=== PATIENT | male | born 1955 | race Asian ===

== ENCOUNTER 2018-01-09 13:19 | Observation (INO) | payer SELFPAY ==
--- NOTE | 2018-01-09 13:48 | PDOC ---
History of Present Illness - General Chief Complaint: Pain, Acute Stated Complaint: ABD PAIN Time Seen by Provider: 01/09/18 13:45 - History of Present Illness Initial Comments: 01/09/18 13:46 62 yo M with h/o IDDM, HTN, L sided nephrolithiasis s/p ESWL (12/31) who p/w suprpapubic pain. Patient reports 2-3 days of intermittent, suprapubic discomfort. No identifiable triggers or alleviators. Percocet for pain relief. States that urine has appeared "bhavik" following ESWL. Denies hematuria. Patient denies N/V, F,C, CP, SOB, urinary complaints, diarrhea, constipation, lightheadedness, weakness, sensory changes. PMHx: as noted above. Denies h/o abdominal surgery. Urologist Dr. Jay. ROS: as noted SHx: Etoh 30 ml per night. 2 cigarettes per day. Denies IVDA. Allergies: NKDA Past History - Past Medical History Allergies/Adverse Reactions: Allergies Allergy/AdvReac Type Severity Reaction Status Date / Time No Known Drug Allergies Allergy Verified 01/09/18 13:33 Home Medications: Ambulatory Orders Aspirin [ASA -] 81 mg PO DAILY 05/02/14 Atorvastatin Ca [Lipitor] 20 mg PO DAILY 05/02/14 Carvedilol 25 mg PO DAILY 05/02/14 Isosorbide Mononitrate 30 mg PO DAILY 05/02/14 Glipizide [Glucotrol -] 10 mg PO BID 05/19/15 Losartan Potassium [Cozaar] 100 mg PO DAILY 05/19/15 Clopidogrel Bisulfate [Plavix -] 75 mg PO DAILY #0 05/22/15 Insulin Glargine,Hum.rec.anlog [Lantus] 25 unit SQ HS 01/09/18 Metformin HCl [Glucophage] 1,000 mg PO BID 01/09/18 Anemia: No Asthma: No Cancer: No Cardiac Disorders: Yes (2004 [place] ANGIOPLASY WITH STENT INSERTION) CVA: No COPD: No CHF: No Dementia: No Diabetes: Yes (NIDDM) GI Disorders: No Disorders: Yes (KIDNEY STONE) HTN: Yes Hypercholesterolemia: Yes Liver Disease: No Seizures: No Thyroid Disease: No - Immunization History Immunization Up to Date: Yes - Suicide/Smoking/Psychosocial Hx Smoking History: Former smoker Have you smoked in the past 12 months: Yes Number of Cigarettes Smoked Daily: 4 If you are a former smoker, when did you quit?: 10/2014 Information on smoking cessation initiated: No 'Breaking Loose' booklet given: 05/02/14 Hx Alcohol Use: No Drug/Substance Use Hx: No Substance Use Type: None Hx Substance Use Treatment: No Review of Systems - Review of Systems Comments:: 01/09/18 13:47 GENERAL/CONSTITUTIONAL: No fever or chills. No weakness. HEAD, EYES, EARS, NOSE AND THROAT: No change in vision. No ear pain or discharge. No sore throat. CARDIOVASCULAR: No chest pain or shortness of breath RESPIRATORY: No cough, wheezing, or hemoptysis. GASTROINTESTINAL: No nausea, vomiting, diarrhea or constipation. GENITOURINARY: + Suprapubic pain. No dysuria, frequency, or change in urination. MUSCULOSKELETAL: No joint or muscle swelling or pain. No neck or back pain. SKIN: No rash NEUROLOGIC: No headache, vertigo, loss of consciousness, or change in strength/ sensation. ENDOCRINE: No increased thirst. No abnormal weight change HEMATOLOGIC/LYMPHATIC: No anemia, easy bleeding, or history of blood clots. ALLERGIC/IMMUNOLOGIC: No hives or skin allergy. *Physical Exam - Vital Signs Last Vital Signs Temp Pulse Resp BP Pulse Ox 97.4 F L 61 18 134/73 100 01/09/18 13:33 01/09/18 13:33 01/09/18 13:33 01/09/18 13:33 01/09/18 13:33 - Physical Exam Comments: 01/09/18 13:47 GENERAL: Awake, alert, and fully oriented, in no acute distress HEAD: No signs of trauma, normocephalic, atraumatic EYES: PERRLA, EOMI, sclera anicteric, conjunctiva clear ENT: Hearing grossly normal, nares patent, oropharynx clear without exudates. Moist mucosa NECK: Normal ROM, supple, no lymphadenopathy, JVD, or masses LUNGS: No distress, speaks full sentences, clear to auscultation bilaterally HEART: Regular rate and rhythm, normal S1 and S2, no murmurs, rubs or gallops, peripheral pulses normal and equal bilaterally. ABDOMEN: Soft, + suprapubic ttp. Nontender, normoactive bowel sounds. No guarding, no rebound. No masses EXTREMITIES : Normal inspection, Normal range of motion, no edema. No clubbing or cyanosis. SKIN: Warm, Dry, normal turgor, no rashes or lesions noted ED Treatment Course - LABORATORY CBC & Chemistry Diagram: 01/09/18 14:51 01/09/18 14:51 Medical Decision Making - Medical Decision Making 01/09/18 14:12 62 yo M with h/o IDDM, HTN, L sided nephrolithiasis s/p ESWL (12/31) who p/w suprpapubic pain. VSS, AF, A&Ox3. + suprpapubic ttp. Probable cystitis. Not on antibiotic treatment. Non toxic appearing, absent CVA ttp, AF. Low suspicion pyelonephritis, obstructive uropathy, AAA, Ao dissection. ED Course: CBC,CMP, UA, Urine Cx. Ibruprofen Renal/Bladder U/S 01/09/18 15:12 UA: 3+ Blood, 72 RBC 01/09/18 15:56 WBC: 8.9 01/09/18 16:12 BUN/Cr: 26/1.8 (0.9) 01/09/18 16:31 Renal U/S: Non obstructing renal stones without evidence of hydronephrosis. 01/09/18 17:02 Called and spoke to Dr. Perez. Awaiting call back, Ana Grigsby to check EMR and report back to ED with Cr baseline. 01/09/18 17:[address] Perez Creatinine 1.2 (12/30/17) *DC/Admit/Observation/Transfer Diagnosis at time of Disposition: Suprapubic cramping - Discharge Dispostion Condition at time of disposition: Stable Decision to Admit order: No - Referrals Referrals: Sherice Lux MD [Primary Care Provider] - - Patient Instructions Printed Discharge Instructions: DI for Abdominal Pain-Adult Additional Instructions: Please return to the emergency department with any new or worsening symptoms or concerns. Please follow up with your primary care physician within 72 hours. - Post Discharge Activity - Attestations Physician Attestion: 01/09/18 14:16 I attest to the information provided in this note.
--- NOTE | 2018-01-09 14:01 | PDOC ---
Attending Attestation - Resident Resident Name: John Paul Wu - ED Attending Attestation I have performed the following: I have examined & evaluated the patient, The case was reviewed & discussed with the resident, I agree w/resident's findings & plan, Exceptions are as noted - HPI HPI: 01/09/18 14:31 62y M hx of dm, htn, hl, kidney stones s/p lithotrypsy on 12/31, pt was well until the past 2-3 days when he developed intermittent/crampy LLQ and suprapubic pain c/w prior kidney stones, no associated dysuria, fever/chills, n/ v, hematuria. Pain c/w prior kidney stones and staets he has been passing stones/sediment since his procedure. No other assoicated cp, sob, palpitations. Pt taking percs for pain with some relief. GENERAL: The patient is awake, alert, and fully oriented, Nontoxic - in no acute distress. HEAD: Normocephalic, atraumatic. EYES: extraocular movements intact, sclera anicteric, conjunctiva clear. ENT: Normal voice, Moist mucous membranes. NECK: Normal range of motion, supple LUNGS: Breath sounds equal, clear to auscultation bilaterally. No wheezes, no rhonchi, no rales. HEART: Regular rate and rhythm, normal S1 and S2 without murmur, rub or gallop. ABDOMEN: Soft, nontender, No guarding, no rebound. No CVA tenderness EXTREMITIES: Normal range of motion, no edema. NEUROLOGICAL: No facial assymetry, Normal speech, PSYCH: Normal mood, normal affect. SKIN: Warm, Dry, normal turgor, suspect possible kidney stone UA to r/o hematuria/infection US to r/o hydro will give nsaids for pain will reassess and dw dr. Sheets - Medical Decision Making 01/09/18 16:52 pts labs reviewed noted for cr of 1.8 - unclear if this is new or old pts pain is improved, asymptmotic currently will discuss with dr. Lux or dr Sheets
[2018-01-09] MEDS ORDERED: IBUPROFEN 600 MG TABLET (FP) PO ONE ×2 (14:05→14:25)
[2018-01-09 14:53] LABS: URINE APPEARANCE CLEAR; URINE BILIRUBIN NEGATIVE (<2.0 mg/dL); URINE COLOR LTYELLOW; URINE GLUCOSE (UA) NEGATIVE (NEGATIVE); URINE KETONE NEGATIVE (NEGATIVE); URINE LEUK ESTERASE TRACE (NEGATIVE); URINE NITRITE NEGATIVE (NEGATIVE); URINE UROBILINOGEN NEGATIVE mg/dL (0.2-1.0)
[2018-01-09 14:55] LABS: URINE PROTEIN 1+ (NEGATIVE)
[2018-01-09 14:56] LABS: URINE MUCUS RARE
[2018-01-09 15:32] LABS: EOS % 6.7 % (0-4.5); HEMATOCRIT 40.8 % (35.4-49); HEMOGLOBIN 13.9 GM/dL (11.7-16.9); MCH 31.7 pg (25.7-33.7); MCHC 34.2 g/dl (32.0-35.9); MEAN CELL VOLUME 92.8 fl (80-96); MEAN PLT VOLUME 9.7 fl (7.5-11.1); MONO % 8.5 % (3.8-10.2); NEUT % 58.8 % (42.8-82.8); PLATELET COUNT 177 K/MM3 (134-434); RBC 4.39 M/mm3 (4.00-5.60); RDW 12.7 % (11.9-15.9); WHITE BLOOD COUNT 8.9 K/mm3 (4.0-10.0)
[2018-01-09 15:53] LABS: ALBUMIN 3.8 g/dl (3.4-5.0); ANION GAP 9 (8-16); BLOOD UREA NITROGEN 26 mg/dL (7-18); CALCIUM 8.9 mg/dL (8.5-10.1); CHLORIDE 104 mmol/L (98-107); CO2 26 mmol/L (21-32); GLUCOSE,RANDOM 55 mg/dL (74-106); POTASSIUM 4.9 mmol/L (3.5-5.1); SGPT/ALT 53 U/L (12-78); SODIUM 139 mmol/L (136-145)
[2018-01-09 15:56] LABS: ALK PHOS 57 U/L (45-117); BILIRUBIN,TOTAL 0.4 mg/dL (0.2-1.0); CREATININE 1.8 mg/dL (0.7-1.3); SGOT/AST 40 U/L (15-37); TOT PROT 6.8 g/dl (6.4-8.2)
[2018-01-09] MEDS ORDERED: SODIUM CHLORIDE 1,000 ML IV STA (16:31)
--- NOTE | 2018-01-09 18:40 | HP ---
CHIEF COMPLAINT: Suprapubic and left flank pain PCP: Dr. Lux HISTORY OF PRESENT ILLNESS: 62 year-old male with a PMH significant for HTN, HLD, IDDM, and nephrolithiasis s/p 14 lithotripsies over a span of more than 10 years, most recently 12/31/17 ( [facility]). Patient felt well until 2-3 days ago when he developed left flank and suprapubic pain. The pain was very similar in character to when he has passed numerous previous renal stones. His urine contained visible sediment/ gravel. He managed the pain initially with percocet but in the past 24 hours the pain became intolerable and his urologist's office recommended he come to the ED. Patient denies fever, sweats, chills. Denies hematuria, dysuria. ER course was notable for: (1) UA: 72 RBCs, 10 WBCs (2) BUN/Cr 26/1.8 (2) Afebrile, no leukocytosis (3) US renal: nonobstructing bilateral renal stones; no evidence of hydronephrosis Recent Travel: No PAST MEDICAL HISTORY: Hypertension Hyperlipidemia IDDM Nephrolithiasis PAST SURGICAL HISTORY: Multiple lithotripsies Coronary stent Social History: Smoking: current smoker Alcohol: daily alcohol Drugs: denies Family History: Allergies No Known Drug Allergies Allergy (Verified 01/09/18 13:33) HOME MEDICATIONS: Home Medications Medication Instructions Recorded Aspirin [ASA -] 81 mg PO DAILY 05/02/14 Atorvastatin Ca [Lipitor] 20 mg PO DAILY 05/02/14 Carvedilol 25 mg PO DAILY 05/02/14 Isosorbide Mononitrate 30 mg PO DAILY 05/02/14 Glipizide [Glucotrol -] 10 mg PO BID 05/19/15 Losartan Potassium [Cozaar] 100 mg PO DAILY 05/19/15 Clopidogrel Bisulfate [Plavix -] 75 mg PO DAILY #0 05/22/15 Insulin Glargine,Hum.rec.anlog 25 unit SQ HS 01/09/18 [Lantus] Metformin HCl [Glucophage] 1,000 mg PO BID 01/09/18 REVIEW OF SYSTEMS CONSTITUTIONAL: Absent: fever, chills, diaphoresis, generalized weakness, malaise, loss of appetite, weight change HEENT: Absent: rhinorrhea, nasal congestion, throat pain, throat swelling, difficulty swallowing, mouth swelling, ear pain, eye pain, visual changes CARDIOVASCULAR: Absent: chest pain, syncope, palpitations, irregular heart rate, lightheadedness , peripheral edema RESPIRATORY: Absent: cough, shortness of breath, dyspnea with exertion, orthopnea, wheezing, stridor, hemoptysis GASTROINTESTINAL: Absent: abdominal pain, abdominal distension, nausea, vomiting, diarrhea, constipation, melena, hematochezia GENITOURINARY: +flank pain, suprapubic pain, urine sediment/gravel Absent: dysuria, frequency, urgency, hesitancy, hematuria, genital pain MUSCULOSKELETAL: Absent: myalgia, arthralgia, joint swelling, back pain, neck pain SKIN: Absent: rash, itching, pallor HEMATOLOGIC/IMMUNOLOGIC: Absent: easy bleeding, easy bruising, lymphadenopathy, frequent infections ENDOCRINE: Absent: unexplained weight gain, unexplained weight loss, heat intolerance, cold intolerance NEUROLOGIC: Absent: headache, focal weakness or paresthesias, dizziness, unsteady gait, seizure, mental status changes, bladder or bowel incontinence PSYCHIATRIC: Absent: anxiety, depression, suicidal or homicidal ideation, hallucinations. PHYSICAL EXAMINATION Vital Signs - 24 hr 01/09/18 01/09/18 13:33 17:26 Temperature 97.4 F L 97.8 F Pulse Rate 61 Pulse Rate [ 61 Left Radial] Respiratory 18 17 Rate Blood Pressure 134/73 Blood Pressure 104/61 [Right Arm] O2 Sat by Pulse 100 98 Oximetry (%) GENERAL: Awake, alert, and fully oriented, in no acute distress. HEAD: Normal with no signs of trauma. EYES: Pupils equal, round and reactive to light, extraocular movements intact, sclera anicteric, conjunctiva clear. No lid lag. EARS, NOSE, THROAT: Ears normal, nares patent, oropharynx clear without exudates. Moist mucous membranes. NECK: Normal range of motion, supple without lymphadenopathy, JVD, or masses. LUNGS: Breath sounds equal, clear to auscultation bilaterally. No wheezes, and no crackles. No accessory muscle use. HEART: Regular rate and rhythm, normal S1 and S2 ABDOMEN: Soft, nontender, not distended MUSCULOSKELETAL: Normal range of motion at all joints. No bony deformities or tenderness. No CVA tenderness. UPPER EXTREMITIES: 2+ pulses, warm, well-perfused. No cyanosis. No clubbing. No peripheral edema. LOWER EXTREMITIES: 2+ pulses, warm, well-perfused. No calf tenderness. No peripheral edema. NEUROLOGICAL: Cranial nerves II-XII intact. Normal speech. Laboratory Results - last 24 hr 01/09/18 01/09/18 01/09/18 14:22 14:51 14:51 WBC 8.9 RBC 4.39 Hgb 13.9 Hct 40.8 MCV 92.8 MCH 31.7 MCHC 34.2 RDW 12.7 Plt Count 177 MPV 9.7 D Absolute Neuts (auto) 5.2 Neutrophils % 58.8 Lymphocytes % 25.0 Monocytes % 8.5 Eosinophils % 6.7 H Basophils % 1.0 Nucleated RBC % 0 Sodium 139 Potassium 4.9 Chloride 104 Carbon Dioxide 26 Anion Gap 9 BUN 26 H Creatinine 1.8 H Creat Clearance w eGFR 38.18 Random Glucose 55 L D Calcium 8.9 Total Bilirubin 0.4 AST 40 H D ALT 53 D Alkaline Phosphatase 57 Total Protein 6.8 Albumin 3.8 Urine Color Ltyellow Urine Appearance Clear Urine pH 5.0 Ur Specific [place] 1.012 Urine Protein 1+ H Urine Glucose (UA) Negative Urine Ketones Negative Urine Blood 3+ H Urine Nitrite Negative Urine Bilirubin Negative Urine Urobilinogen Negative Ur Leukocyte Esterase Trace Urine WBC (Auto) 10 Urine RBC (Auto) 72 Urine Mucus Rare ASSESSMENT/PLAN: 62 year-old male with a PMH significant for HTN, HLD, CAD s/p IA s/p stent (2004 ), IDDM, and nephrolithiasis s/p 14 lithotripsies over a span of more than 10 years, most recently 12/31/17 ([facility]). Placed on observation for left flank and suprapubic pain, and hematuria. Nephrolithiasis s/p lithotripsy 12/31/17 Microscopic hematuria --patient felt stone fragments passing through ureters, pain much improved after IV fluids --US shows no obstruction, no hydro --CT stone protocol ordered JANNETH --Cr 1.8, was 1.2 one week ago --IV fluids Hypertension --BP stable --continue carvedilol Hyperlipidemia --continue Lipitor CAD s/p stent --continue carvedilol, Lipitor, Plavix, ASA, isosorbide IDDM --Levemir --Novolog sliding scale coverage FEN Fluids: NS x 1.5L bolus, then 125mL/hr Electrolytes: replete as indicated Nutrition: diabetic DVT prophylaxis: SCDs, oob, ambulation Dispo: continues to require observation. Full code. Visit type - Emergency Visit Emergency Visit: Yes ED Registration Date: 01/09/18 Care time: The patient presented to the Emergency Department on the above date and was hospitalized for further evaluation of their emergent condition. - New Patient This patient is new to me today: Yes Date on this admission: 01/09/18 - Critical Care Critical Care patient: No Hospitalist Screening - Colonoscopy Questionnaire Colonoscopy Questionnaire: Colonoscopy Questionnaire - Patient: 50 - 75 years old and never had a screening colonoscopy: Unknown History of colon or rectal polyps, or CA: No History of IBD, Crohn's disease or UC: No History of abdominal radiation therapy as a child: No - Relative: 1 with colon or rectal CA, or polyps at age 60 or younger: Unknown Colon or rectal CA diagnosed at age 45 or younger: Unknown Multiple relatives with colon or rectal CA: Unknown - Outcome: Screening Result: Negative Screen
[2018-01-09] MEDS ORDERED: SODIUM CHLORIDE 500 ML IV STA (18:50)
[2018-01-09] MEDS: SODIUM CHLORIDE 1,000 ML IV SCH (20:49)
[2018-01-09] MEDS ORDERED: ATORVASTATIN CA 20 MG TABLET (FP) PO SCH (22:00)
[2018-01-09] MEDS ORDERED: INSULIN (LEVEMIR) 100 UNITS/ML UNITS SQ SCH (22:00)
[2018-01-09 22:44] VITALS: BMI 25.3
[2018-01-09] MEDS: INSULIN SLIDING SCALE (NOVOLOG) 1 VIAL SQ SCH (23:04)
[2018-01-09] MEDS: CARVEDILOL 12.5 MG TABLET (FP) PO SCH ×2 (23:04→23:13)
[2018-01-10] MEDS: SODIUM CHLORIDE 1,000 ML IV SCH ×2 (05:57→15:06)
[2018-01-10] MEDS: INSULIN SLIDING SCALE (NOVOLOG) 1 VIAL SQ SCH ×2 (06:04→12:05)
[2018-01-10 07:52] LABS: BASO % 0.9 % (0-2.0); HEMATOCRIT 38.8 % (35.4-49); HEMOGLOBIN 13.3 GM/dL (11.7-16.9); LYMPH % 22.2 % (8-40); MCH 31.9 pg (25.7-33.7); MCHC 34.4 g/dl (32.0-35.9); MEAN CELL VOLUME 92.5 fl (80-96); MEAN PLT VOLUME 9.6 fl (7.5-11.1); MONO % 9.5 % (3.8-10.2); NEUT % 60.4 % (42.8-82.8); PLATELET COUNT 151 K/MM3 (134-434); RBC 4.19 M/mm3 (4.00-5.60); RDW 12.8 % (11.9-15.9); WHITE BLOOD COUNT 7.1 K/mm3 (4.0-10.0)
[2018-01-10 09:06] LABS: ALBUMIN 3.2 g/dl (3.4-5.0); ALK PHOS 49 U/L (45-117); ANION GAP 8 (8-16); BILIRUBIN,TOTAL 0.3 mg/dL (0.2-1.0); BLOOD UREA NITROGEN 24 mg/dL (7-18); CALCIUM 7.9 mg/dL (8.5-10.1); CHLORIDE 112 mmol/L (98-107); CO2 22 mmol/L (21-32); CREATININE 1.3 mg/dL (0.7-1.3); GLUCOSE,RANDOM 82 mg/dL (74-106); MAGNESIUM 1.9 mg/dL (1.8-2.4); POTASSIUM 4.6 mmol/L (3.5-5.1); SGOT/AST 18 U/L (15-37); SGPT/ALT 34 U/L (12-78); SODIUM 142 mmol/L (136-145); TOT PROT 5.8 g/dl (6.4-8.2)
[2018-01-10] MEDS ORDERED: CLOPIDOGREL BISULFATE 75 MG TABLET (FP) PO SCH ×2 (10:00)
[2018-01-10] MEDS: CARVEDILOL 12.5 MG TABLET (FP) PO SCH (10:00)
[2018-01-10] MEDS ORDERED: CARVEDILOL 25 MG TABLET (FP) PO SCH (10:00)
[2018-01-10] MEDS ORDERED: ISOSORBIDE MONONITRATE 30 MG TAB.SR.24H (FP) PO SCH (10:00)
[2018-01-10] MEDS ORDERED: RANITIDINE HCL 150 MG TABLET (FP) PO SCH (11:15)
[2018-01-10] MEDS ORDERED: INSULIN (NOVOLOG) ASPART 100 UNITS/ML 10ML VIAL ONE (12:16)
--- NOTE | 2018-01-10 14:30 | DS ---
Physical Exam: SUBJECTIVE: Patient seen and examined OBJECTIVE: Vital Signs Period Temp Pulse Resp BP Sys/Arerdondo Pulse Ox Last 24 Hr 97.6 F-98 F 56-61 16-18 104-166/61-81 98-98 PHYSICAL EXAM GENERAL: The patient is awake, alert, and fully oriented, in no acute distress. HEAD: Normal with no signs of trauma. EYES: PERRL, extraocular movements intact, sclera anicteric, conjunctiva clear. ENT: Ears normal, nares patent, oropharynx clear without exudates, moist mucous membranes. NECK: Trachea midline, full range of motion, supple. LUNGS: Breath sounds equal, clear to auscultation bilaterally, no wheezes, no crackles, no accessory muscle use. HEART: Regular rate and rhythm, S1, S2 without murmur, rub or gallop. ABDOMEN: Soft, nontender, nondistended, normoactive bowel sounds, no guarding, no rebound, no hepatosplenomegaly, no masses. EXTREMITIES: 2+ pulses, warm, well-perfused, no edema. NEUROLOGICAL: Cranial nerves II through XII grossly intact. Normal speech, gait not observed. PSYCH: Normal mood, normal affect. SKIN: Warm, dry, normal turgor, no rashes or lesions noted. LABS Laboratory Results - last 24 hr 01/09/1818 01/09/18 14:22 14:51 14:51 WBC 8.9 RBC 4.39 Hgb 13.9 Hct 40.8 MCV 92.8 MCH 31.7 MCHC 34.2 RDW 12.7 Plt Count 177 MPV 9.7 D Absolute Neuts (auto) 5.2 Neutrophils % 58.8 Lymphocytes % 25.0 Monocytes % 8.5 Eosinophils % 6.7 H Basophils % 1.0 Nucleated RBC % 0 Sodium 139 Potassium 4.9 Chloride 104 Carbon Dioxide 26 Anion Gap 9 BUN 26 H Creatinine 1.8 H Creat Clearance w eGFR 38.18 POC Glucometer Random Glucose 55 L D Calcium 8.9 Magnesium Total Bilirubin 0.4 AST 40 H D ALT 53 D Alkaline Phosphatase 57 Total Protein 6.8 Albumin 3.8 Urine Color Ltyellow Urine Appearance Clear Urine pH 5.0 Ur Specific [place] 1.012 Urine Protein 1+ H Urine Glucose (UA) Negative Urine Ketones Negative Urine Blood 3+ H Urine Nitrite Negative Urine Bilirubin Negative Urine Urobilinogen Negative Ur Leukocyte Esterase Trace Urine WBC (Auto) 10 Urine RBC (Auto) 72 Urine Mucus Rare 01/09/18 01/10/18 01/10/18 22:53 05:31 06:40 WBC 7.1 RBC 4.19 Hgb 13.3 Hct 38.8 MCV 92.5 MCH 31.9 MCHC 34.4 RDW 12.8 Plt Count 151 MPV 9.6 Absolute Neuts (auto) 4.3 Neutrophils % 60.4 Lymphocytes % 22.2 Monocytes % 9.5 Eosinophils % 7.0 H Basophils % 0.9 Nucleated RBC % 0 Sodium Potassium Chloride Carbon Dioxide Anion Gap BUN Creatinine Creat Clearance w eGFR POC Glucometer 200 72 Random Glucose Calcium Magnesium Total Bilirubin AST ALT Alkaline Phosphatase Total Protein Albumin Urine Color Urine Appearance Urine pH Ur Specific [place] Urine Protein Urine Glucose (UA) Urine Ketones Urine Blood Urine Nitrite Urine Bilirubin Urine Urobilinogen Ur Leukocyte Esterase Urine WBC (Auto) Urine RBC (Auto) Urine Mucus 01/10/18 01/10/18 01/10/18 06:40 06:47 12:02 WBC RBC Hgb Hct MCV MCH MCHC RDW Plt Count MPV Absolute Neuts (auto) Neutrophils % Lymphocytes % Monocytes % Eosinophils % Basophils % Nucleated RBC % Sodium 142 Potassium 4.6 Chloride 112 H Carbon Dioxide 22 Anion Gap 8 BUN 24 H Creatinine 1.3 Creat Clearance w eGFR 55.58 POC Glucometer 109 166 Random Glucose 82 D Calcium 7.9 L Magnesium 1.9 Total Bilirubin 0.3 AST 18 D ALT 34 D Alkaline Phosphatase 49 Total Protein 5.8 L Albumin 3.2 L Urine Color Urine Appearance Urine pH Ur Specific [place] Urine Protein Urine Glucose (UA) Urine Ketones Urine Blood Urine Nitrite Urine Bilirubin Urine Urobilinogen Ur Leukocyte Esterase Urine WBC (Auto) Urine RBC (Auto) Urine Mucus HOSPITAL COURSE: Date of Admission:01/09/18 Date of Discharge: 01/10/18 's memorial service is tomorrow Pain is resolved, Cr 1.8-->1.3 Urinal filled with stones at bottom, urine clear yellow Seen by Nora Friday appt with Kortney Minutes to complete discharge: 35 Discharge Summary Reason For Visit: ACUTE NON TRAUMATIC KIDNEY INJURY Current Active Problems Suprapubic cramping (Acute) Condition: Stable - Instructions Diet, Activity, Other Instructions: It is important to stay well-hydrated, especially in the warm weather. Drink plenty of fluids and avoid alcohol and caffeine. It is important you follow up with Dr. Sheets on Friday for your scheduled appointment. Return to the emergency department for any new or worsening symptoms. Referrals: Sherice Lux MD [Primary Care Provider] - Linn Sheets MD [Staff Physician] - 01/12/18 10:00 am - Home Medications Comprehensive Discharge Medication List: Ambulatory Orders Aspirin [ASA -] 81 mg PO DAILY 05/02/14 Atorvastatin Ca [Lipitor] 20 mg PO DAILY 05/02/14 Carvedilol 25 mg PO DAILY 05/02/14 Isosorbide Mononitrate 30 mg PO DAILY 05/02/14 Glipizide [Glucotrol -] 10 mg PO BID 05/19/15 Losartan Potassium [Cozaar] 100 mg PO DAILY 05/19/15 Clopidogrel Bisulfate [Plavix -] 75 mg PO DAILY #0 05/22/15 Insulin Glargine,Hum.rec.anlog [Lantus] 25 unit SQ HS 01/09/18 Metformin HCl [Glucophage] 1,000 mg PO BID 01/09/18
[2018-01-10 15:21] VITALS: BP 113/65; PULSE 50; TEMP 97.8
--- NOTE | 2018-01-10 15:28 | PN ---
Progress Note (short form) - Note Progress Note: UROLOGY NOTE. pt. with h/o nephrolithiasis has had an eoisode of lt. renal colick. presently feels better. urologically ok for d/c.
--- NOTE | 2018-01-10 16:11 | CONS ---
DATE OF CONSULTATION: 01/09/2018 Patient is a 62-year-old male well-known to our practice. He presents to the emergency room with acute onset of left flank pain and suprapubic pain. Pain is colicky in nature, acute in onset and radiates down the left lower quadrant and left groin. The patient has had multiple similar episodes in the past and has undergone several ureteroscopic laser lithotripsies as well as extracorporeal shock wave lithotripsies. Patient also has history of high blood pressure, diabetes, as well as dyslipidemia. He does have history of nephrolithiasis. A workup revealed calcium oxalate stone. The patient in the emergency room was found to have a large amount of RBCs in his urine. His BUN was 26 and creatinine 1.8. He was afebrile. A renal ultrasound revealed bilateral nephrolithiasis with no evidence of stone disease. Again, he has known history of multiple lithotripsies as well as coronary stents for atherosclerotic heart disease. The patient does smoke cigarettes daily as well as drink daily. He denies any significant family history. ALLERGIES: He denies any allergies. MEDICATIONS: He is on aspirin, Lipitor, Carvedilol, Isosorbide, Glucotrol, Cozaar, Plavix, insulin, and Metformin. PHYSICAL EXAMINATION: Vital Signs: His temperature in the emergency room was 97.4, respirations 18, blood pressure 134/73, O2 saturation was 100%. General: He appears to be well developed, in no acute distress. Abdomen: Soft. There is left CVA tenderness. No hepatosplenomegaly is noted. Genitalia: Atraumatic. Testes are normal. Phallus is adequate. Prostate is 2+, smooth, benign and nontender. Extremities: Reveal full range of motion with no cyanosis, clubbing or edema. His white count on admission was 8.9, hemoglobin was 13.9, hematocrit 40.8, platelets were 177. The patient's calcium was 8.9. Liver enzymes were within normal limits. The patient's urine revealed leukocyte esterase and a large amount of red blood cells as well as white blood cells. A CAT scan performed on the patient on January 09, 2018, revealed several nonobstructing bilateral renal calculi. There was also a 2.4 cm diverticulum along the medial aspect of the 2nd portion of the duodenum. There were small bilateral inguinal hernias which contained fat. There was also slight bulging of the left and right ventral lateral borders of the urinary bladder into the inguinal hernias indicative of sliding hernias. There is also a small umbilical hernia containing fat. There is mild prostate enlargement, colonic diverticulosis and a grade 1 L4, L5 degenerative spondylolisthesis. The left kidney revealed a mild left lower ureteral dilation with hydroureteronephrosis to the level of the ureterovesical junction. Patient's latest laboratory data reveals a white count of 7000, BUN is 24 and creatinine 1.3. Patient appears to be asymptomatic. His T-max is 98. His blood pressure is 113/65. IMPRESSION: At present is most likely spontaneous passage of left ureterovesical stone. Patient is urologically cleared for discharge. Will be followed in office and placed on potassium citrate as well as hydrochlorothiazide because of a history of hypercalciuria. The patient is encouraged to increase his p.o. fluids and was given a strainer. Will follow him in 1 week. Ellis [id number]
== END 2018-01-10 16:18 | disposition home or self-care (01) ==
LOC: JER 13:19 → JERBED 19:40 → J8W 22:50
PROVIDERS: ADMIT Internal Medicine; ATTEND Nurse Practitioner Acute Care
PROC: 3E0337Z Introduction of Electrolytic and Water Balance Substance into Peripheral Vein, Percutaneous Approach (ICD-10-PCS; principal; 2018-01-09)
PROC: 3E013VG Introduction of Insulin into Subcutaneous Tissue, Percutaneous Approach (ICD-10-PCS; 2018-01-09)
DX: R10.30 Lower abdominal pain, unspecified (principal); R10.9 Unspecified abdominal pain; I10 Essential (primary) hypertension; I25.10 Atherosclerotic heart disease of native coronary artery without angina pectoris; E78.5 Hyperlipidemia, unspecified; E11.9 Type 2 diabetes mellitus without complications; Z79.82 Long term (current) use of aspirin; Z79.84 Long term (current) use of oral hypoglycemic drugs; Z95.5 Presence of coronary angioplasty implant and graft; Z79.4 Long term (current) use of insulin
CPT/HCPCS: 36415; 71045-TC-FY; 74176; 76775-TC; 80053; 81003; 81015; 82962; 83735; 85025; 87086; 99284-25; G0378; J7030

== ENCOUNTER 2021-01-25 08:09 | Emergency (ER) | payer OTHER ==
[2021-01-25 08:30] VITALS: BMI 26.6
[2021-01-25] MEDS ORDERED: KETOROLAC TROMETHAMINE 15 MG/ML VIAL IVPUSH ONE (09:26)
[2021-01-25] MEDS ORDERED: TAMSULOSIN HCL 0.4 MG CAP PO ONE (09:26)
[2021-01-25] MEDS ORDERED: TAMSULOSIN HCL 0.4 MG CAP ONE (09:31)
[2021-01-25] MEDS ORDERED: KETOROLAC TROMETHAMINE 15 MG/ML VIAL ONE (09:31)
[2021-01-25] MEDS ORDERED: SODIUM CHLORIDE 0.9% 500 ML INFUS.BAG IV ONE (09:32)
[2021-01-25 10:08] LABS: BASO % 1.1 % (0-2.0); EOS % 7.2 % (0-4.5); HEMATOCRIT 43.2 % (35.4-49); HEMOGLOBIN 14.7 GM/dL (11.7-16.9); LYMPH % 31.6 % (8-40); MCH 30.8 pg (25.7-33.7); MEAN CELL VOLUME 90.7 fl (80-96); MEAN PLT VOLUME 9.2 fl (7.5-11.1); MONO % 8.7 % (3.8-10.2); NEUT % 51.4 % (42.8-82.8); PLATELET COUNT 180 10^3/uL (134-434); RBC 4.76 M/mm3 (4.00-5.60); RDW 13.6 % (11.9-15.9); WHITE BLOOD COUNT 8.2 K/mm3 (4.0-10.0)
[2021-01-25 10:38] LABS: CALCIUM 8.9 mg/dL (8.5-10.1)
[2021-01-25 10:39] LABS: ALBUMIN 3.8 g/dl (3.4-5.0)
[2021-01-25 10:42] LABS: CREATININE 0.9 mg/dL (0.55-1.3)
[2021-01-25 10:44] LABS: BILIRUBIN,TOTAL 0.5 mg/dL (0.2-1); TOT PROT 7.3 g/dl (6.4-8.2)
[2021-01-25 12:15] LABS: EPI CELLS 2 /uL (0-25.1); HYALINE CASTS 1 /uL (0-3.1); PH,URINE 5.5 (5.0-8.0); URINE APPEARANCE CLEAR; URINE BACTERIA 46 /uL (0-1359); URINE BILIRUBIN NEGATIVE (NEGATIVE); URINE COLOR YELLOW; URINE GLUCOSE (UA) NEGATIVE (NEGATIVE); URINE KETONE NEGATIVE (NEGATIVE); URINE LEUK ESTERASE NEGATIVE (NEGATIVE); URINE NITRITE NEGATIVE (NEGATIVE); URINE PROTEIN 1+ (NEGATIVE); URINE RBC 13 /uL (0-23.9); URINE WBC 2 /uL (0-25.8)
[2021-01-25 14:04] VITALS: BP 145/75; PULSE 68; TEMP 98.2
== END 2021-01-25 13:00 | disposition home or self-care (01) ==
LOC: JER 08:09
PROC: 3E0233Z Introduction of Anti-inflammatory into Muscle, Percutaneous Approach (ICD-10-PCS; principal; 2021-01-25)
DX: N20.0 Calculus of kidney (principal)
CPT/HCPCS: 36415; 74176-TC; 80053; 81003; 85025; 87086; 99284-25